=== PATIENT | male | born 1980 | race Caucasian/White ===

== ENCOUNTER 2025-04-10 17:07 | Emergency (ER) | payer MEDICARE, OTHER, SELFPAY ==
[2025-04-10 17:20] VITALS: BP 129/84
--- NOTE | 2025-04-10 18:54 | ED.GENMED ---
History of Present Illness
General
Chief Complaint: Fall
Source: patient
Time Seen by Provider: 04/10/25 18:32
History of Present Illness
History of Present Illness:
44-year-old male presents to the emergency room after having a slip and fall on ice at about 1 PM. Patient landed on his right shoulder. He also struck his bridge of his nose. No LOC. Patient does not take any oral anticoagulants. Patient is
experiencing pain with range of motion. He is right-hand dominant. He took Tylenol and ibuprofen earlier for pain. It has helped.
Past History
Past History
ED Past Medical History: Psychiatric and Other (Cardiomyopathy, hepatitis C)
Social History
Tobacco: Smoker
Alcohol: Occasional
Drug: Cocaine, Narcotics and IVDA
Personal:
Living: with family
Employment: Not employed
Family History
Family History: Other (Noncontributory)
Phy Exam
Physical Exam
Physical Exam:
General: Awake, Alert, Oriented X3. No acute distress.
Vitals: unremarkable
Head: Atraumatic
Nose: Abrasion and superficial flap injury to the bridge of his nose. Septum is in the midline.
Eyes: Pupils equal, EOMI
Throat: Airway intact, no exudates
Neck: Trachea midline
Lungs: Clear and equal b/l
Heart: Regular rate, no murmurs
Neuro: Nonfocal
Skin: Warm, dry, no rash
Extremities: pulses equal b/l, no edema. Tenderness palpation over the lateral aspect of the proximal humerus. No obvious deformity.
Course
Orders/Labs/Results
Orders:
Orders
04/10/25 17:21
Shoulder, Right, Trauma [CR Shoulder, Trauma - Right] Urgent
Comment:
Reason For Exam: pain, trauma
04/10/25 19:32
Tetanus/Diphth/Acelpertussis [Adacel] 0.5 ml IM .ONCE ONE
Vital Signs
Initial and Last Documented VS:
Initial Vital Signs
Temp Pulse Resp BP Pulse Ox
98.1 F 79 18 129/84 98
04/10/25 17:20 04/10/25 17:20 04/10/25 17:20 04/10/25 17:20 04/10/25 17:20
Last Documented Vital Signs
Temp Pulse Resp BP Pulse Ox
98.1 F 79 18 129/84 98
04/10/25 17:20 04/10/25 17:20 04/10/25 17:20 04/10/25 17:20 04/10/25 18:56
MDM/Problems Addressed
Differential Diagnosis Includes:
Clavicle fracture, humeral fracture, separate shoulder, shoulder dislocation
MDM/Problems Addressed:
Patient presents with abrasion to the bridge of his nose and right shoulder pain. X-ray shows no acute fracture. Will treat with analgesia, rest ice follow-up with Ortho as needed.
*Radiology
Radiology exam reviewed: preliminary read by ED provider (No fracture noted on my evaluation of the patient's x-ray)
*Pulse Oximetry
SaO2: 98
Oxygen Mode of Delivery: Room air
Patient hypoxic: no
*Critical Care Note
Total Time (30-74mins, 75-104mins- exclusive of procedures): Not Applicable
ED Attending Note
-
Portions of this chart may have been created with voice recognition software.� Occasional wrong word or��sound alike� substitutions may have occurred due to the inherent limitations of voice recognition software.
Discharge Plan
Departure
Patient Disposition: Home (Routine Discharge)
Date of Disposition: 04/10/25
Time of Disposition: 19:33
Patient with high blood pressure during this ER visit?: No
Condition: Good
Discharge Problem:
Shoulder sprain, Abrasion of face
Instructions: Skin Abrasions (DC), Shoulder Sprain ED
Prescriptions:
No Action
melatonin 3 MG tablet
9 mg PO HS
acetaminophen 325 MG tablet
650 mg PO Q4HPRN PRN (Reason: tempp 100.6, moderate pain) 0RF
polyethylene glycol 3350 17 GRAMS powder in packet
17 grams feeding tube DAILY 0RF
sulfamethoxazole-trimethoprim 1 TABLET tablet
1 tab PO BID Qty: 8 0RF
trazodone 100 MG tablet
100 mg PO HS 0RF
baclofen 10 MG tablet
10 mg PO TID 0RF
levothyroxine 125 MCG tablet
125 mcg PO DAILY AT 0700 0RF
gabapentin 300 MG capsule
600 mg PO TID 0RF
mupirocin 1 APPLIC ointment
0 applic intranasal TID 0RF
diazepam 5 MG tablet
5 mg PO TID@1000,1400,1800 0RF
amoxicillin-pot clavulanate 1 TABLET tablet
1 tab PO Q12 Qty: 8 0RF
buprenorphine HCl 8 MG tablet, sublingual
8 mg sublingual BID 0RF
bupropion HCl 150 MG tablet extended release 24 hr
150 mg PO DAILY 0RF
lurasidone [Latuda] 40 MG tablet
40 mg PO QPM 0RF
Rx Instructions:
on 03/27
lurasidone [Latuda] 60 MG tablet
60 mg PO QPM 0RF
Rx Instructions:
start 03/28
Referrals:
Андрей Tovar MD [Active, Orthopedics]
Interventions
Interventions:
*General Assessment Last Done: 04/10/25 19:21
*Neglect/Abuse Screening Last Done: 04/10/25 19:21
*ED COVID-19 Vaccine History Last Done: 04/10/25 19:21
*ED Influenza Vaccine History Last Done: 04/10/25 19:21
[facility] Fall Risk Assessment Tool Last Done: 04/10/25 19:27
*Risk Screen - Suicide (C-SSRS) Last Done: 04/10/25 19:21
*Nursing Disposition Last Done: 04/10/25 20:15
ED-Musculoskeletal Assessment Last Done: 04/10/25 19:21
ED- Neurological Assessment Last Done: 04/10/25 19:21
ED-Skin Assessment Last Done: 04/10/25 19:21
Discharge Date and Time
Discharge Date/Time: 04/10/25 20:15
Print Language: GREENLANDIC
[2025-04-10] MEDS: ADACEL 0.5 ML IM (20:09)
== END 2025-04-10 20:15 | disposition home or self-care (01) ==
LOC: EMR 17:07
PROVIDERS: EMERGENCY PHYSICIAN Emergency Medicine; FAMILY PHYSICIAN Family Medicine
DX: S43.401A Unspecified sprain of right shoulder joint, initial encounter (principal); S00.31XA Abrasion of nose, initial encounter; W00.0XXA Fall on same level due to ice and snow, initial encounter; I42.8 Other cardiomyopathies; B19.20 Unspecified viral hepatitis C without hepatic coma; F17.200 Nicotine dependence, unspecified, uncomplicated; Z23 Encounter for immunization
CPT/HCPCS: 99283; 90471; 73030; 90715